=== PATIENT | male | born 1955 | race Caucasian/White ===

== ENCOUNTER 2017-08-14 21:10 | Emergency (ER) | payer BC ==
[2017-08-14 21:14] VITALS: BMI 26.6
--- NOTE | 2017-08-14 21:52 | DR.GENAD ---
HPI - HPI Comment HPI Comment: PATIENT HAVE LEFT KNEE AND LEFT ELBOW PAIN WELL BRUISE LEFT FACE. - Complaint/Symptoms Chief Complaint Doctors Comments: fell. facial abrasions and laceration corner left eye 2cm. Chief Complaint:: PT STATES THAT HE TRIPPED OVER HIS DOG GATE AND HIT HIS HEAD ON A TABLE. DENIES LOC. A&O X4. PT HAS LAC ON NOSE AND UNDER LT EYE. BLEEDING CONTROLLED. VANDANA RN Self Treatment fo Chief Complaint: PT TOOK BP MEDS THIS AM - Nurses notes reviewed Nurses Notes Review: Yes - Source History Provided: Patient - Mode of Arrival Mode of Arrival: Ambulatory - Timing Onset of Chief Complaint: 08/14/17 Came on: Suddenly - Duration Duration: Constant Duration: Hours - Severity Severity: Moderate PMH - PMH Past Medical History: Yes Past Medical History: Hypertension Past Surgical History: Yes Surgical History: Ortho Surgery - Family History History of Family Medical Conditions: Yes Family Medical History: Cancer, Hypertension - infectious screening Have you traveled outside the country in the last 6 months?: No ROS - Review of Systems Constitutional: No Symptoms Reported Eyes: No Symptoms Reported (PERIORBITAL SWELLING AND BRUISING.), Other ENTM: No Symptoms Reported Respiratoy: No Symptoms Reported Cardiovascular: No Symptoms Reported Gastrointestinal/Abdominal: No Symptoms Reported Genitourinary: No Symptoms Reported Neurological: No Symptoms Reported Musculoskeletal: Muscle Pain, Left, Elbow, Knee, Other (LEFT THIGH) Integumentary: Change in Color, Bruises (LEFT FACE.), Other (abrasion face and lac lateral corner left eye.) Hematologic/Lymphatic: No Symptoms Reported Endocrine: No Symptoms Reported All Other Systems: Reviewed and Negative PE - Vital Signs Vitals: Temperature 97.5 F Pulse Rate [] 83 Pulse Rate 70 Respiratory Rate 18 Blood Pressure [] 143/84 Blood Pressure 189/119 O2 Sat by Pulse Oximetry 99 - General Limitations: No Limitations General Appearance: Alert - Head Head Exam: Normal Inspection - Eyes Eye exam: Normal Appearance - ENT ENT Exam: Normal External Ear Exam External Ear Exam: Normal External Inspection TM/Canal Exam: Bilateral Normal Nose Exam: Laceration (ABRASION/SUPERFICIAL 1/2 CM MID NOSE.) Mouth Exam: Normal Inspection Throat Exam: Normal Inspection - Neck Neck Exam: Trachea Midline - Chest Chest Inspection: Symmetric Chest Wall Rise - Respiratory Respiratory Exam: Normal Lung Sounds Bilat Respiratory Exam: Bilateral Clear to Auscultation - Cardiovascular Cardiovascular Exam: Regular Rate, Normal Rhythm, Normal Heart Sounds - Abdominal Exam Abdominal Exam: Normal Bowel Sounds, Soft. negative: Tenderness - Extremities Extremities Exam: Tenderness (LEFT KNEE SWOLLEN AND TENDER. KARON. LEFT THIGH BRUISED. ) - Back Back Exam: Normal Inspection - Neurologic Neurological Exam: Alert, Oriented X3 - Psychiatric Psychiatric Exam: Normal Affect, Normal Mood - Skin Skin Exam: Erythema MDM - Additional Information Additional Information Obtained From: Family - Differential Diagnosis Differential Diagnosis: LAC LEFT FACE, ABRASION NOSE, FACIAL CONTUSION, HEMATOMA LEFT FACE. Course - Treatment Treatment: SEE ORDERS. LAC CLOSE. TD IM IN ED. - Reevaluation 1st: Improved - Education/Counseling Education/Counseling: Patient, Education Educated On: Treatment, Diagnosis, Needs for Follow Up ROR - XRAY XRAY Interpreted by: Radiologist XRAY Findings: REPORT DISCUSS WITH PATIENT. Procedures - Laceration/Wound Repair Left Face Wound Length (cm): 2 Wound's Depth, Shape: Linear Wound Explored: clean Betadine Prep?: Yes Anesthesia: 1% Lidocaine Volume Anesthetic (ccs): 3 Wound Debrided: moderate Wound Repaired With: sutures Suture Size/Type: 5:0, [place] Number of Sutures: 4 (CONTINOUS SUTURE.) Layer Closure?: No Sterile Dressing Applied?: Yes Splint Applied?: No Sling Applied?: No - Diagnosis Discharge Problem: Hematoma Facial contusion Qualifiers: Encounter type: initial encounter Qualified Code(s): S00.83XA - Contusion of other part of head, initial encounter Laceration of face Qualifiers: Encounter type: initial encounter Qualified Code(s): S01.81XA - Laceration without foreign body of other part of head, initial encounter Sprain of left knee Qualifiers: Encounter type: initial encounter Involved ligament of knee: unspecified ligament Qualified Code(s): S83.92XA - Sprain of unspecified site of left knee, initial encounter Contusion of left thigh Qualifiers: Encounter type: initial encounter Qualified Code(s): S70.12XA - Contusion of left thigh, initial encounter - Discharge Plan Disposition: 01 HOME, SELF-CARE Condition: Stable - Follow ups/Referrals Follow ups/Referrals: FERNANDA PARKER [Primary Care Provider] - 3 days - Instructions Instructions: Musculoskeletal Pain, Laceration Care, Adult, [id number], Knee Pain, [id number] Additional Instructions: RETURN TO ED IF WORSE. SUTURE OUT IN 10 DAYS.
[2017-08-14] MEDS ORDERED: ADACEL TDaP IM ONE ×2 (22:00→22:02)
[2017-08-14] MEDS ORDERED: XYLOCAINE 1 % (PLAIN) ONE (22:41)
--- NOTE | 2017-08-14 22:51 | CT ---
CT head without contrast Indication: Fall with facial lacerations Technique: Axial images from the skullbase to the vertex without contrast. Coronal and sagittal ref ormats provided. Findings: There is no acute intracranial hemorrhage, mass or mass effect. No extra-axial fluid jo-ann ection or abnormal area of hypoattenuation suggest infarction seen. Ventricles and sulci are normal. There is dilated left vertebral artery. Review of bone windows shows no osseous lesion. Paranasal sinuses and mastoid air cells are clear. Impression: 1. No acute intracranial hemorrhage. 2. Ectatic vertebral artery on the left and ectatic basilar artery. Reported By:
--- NOTE | 2017-08-14 22:53 | CT ---
CT maxillofacial without contrast Indication: Pain after fall with facial lacerations. Technique: Helical images through the face without contrast. Coronal and sagittal reformats provide d. Findings: Limited images through the upper spine shows disc degenerative change at C4-C5. Preverteb ral soft tissues are normal. The mandible and temporomandibular joints are intact. Zygomatic arches are normal. Orbital seaman are intact. No displaced nasal bone fracture seen. Mucosal retention cy st seen in the right maxillary sinus. Paranasal sinuses and mastoid air cells are otherwise clear. No large facial hematoma seen. Swelling lateral to the left orbit noted. The globe cells a Conal fa t appear normal. Impression: 1. No acute displaced facial fracture. 2. Degenerative changes and soft tissue swelling around the left orbit as above. Reported By:
[2017-08-14] MEDS ORDERED: NEOSPORIN OINT ONE (23:05)
[2017-08-14 23:08] VITALS: BP 143/84
--- NOTE | 2017-08-15 03:02 | RAD ---
Left knee three views Indication: Left knee pain and bruising. Findings: There is no large effusion. Mild patellofemoral and medial femorotibial joint space narrowi ng noted. There is no cortical lucency or malalignment. Impression: Degenerative change without acute fracture. Reported By:
== END 2017-08-14 23:20 | disposition home or self-care (01) ==
LOC: ER 21:22
PROC: 0WQ2XZZ Repair Face, External Approach (ICD-10-PCS; principal; 2017-08-14)
DX: S00.83XA Contusion of other part of head, initial encounter (principal); S01.81XA Laceration without foreign body of other part of head, initial encounter; S83.92XA Sprain of unspecified site of left knee, initial encounter; S70.12XA Contusion of left thigh, initial encounter; W01.198A Fall on same level from slipping, tripping and stumbling with subsequent striking against other object, initial encounter; Y92.9 Unspecified place or not applicable
CPT/HCPCS: 12011; 70450; 70486; 73560; 90471; 99283; 99284; J2001

== ENCOUNTER → 2017-10-31 | Outpatient (CLI) | payer BC ==
--- NOTE | 2017-10-31 09:26 | US ---
HISTORY: Hypertension Study: Renal ultrasound: Multiplanar ultrasonographic examination of the kidneys was performed. Comparison: None Findings: Overall examination of the kidneys reveal them to be of normal echogenicity and echotexture. There i s mild cortical lobularity, most likely on the basis of scarring from prior inflammatory reaction or ischemic change. No evidence of mass or hydronephrosis is noted. Right kidney: 9.0 cm in length by 5 x 4 cm. Resistive index is normal at 0.63. Left kidney: 10.0 cm in length by 6 x 4.1 cm. The resistive index is normal at 0.60. IMPRESSION: 1. Essentially negative renal ultrasound. 2. Both resistive indices are normal. Reported By:
== END ==
LOC: RAD 08:39
PROVIDERS: ATTEND Internal Medicine
DX: N28.89 Other specified disorders of kidney and ureter (principal); I10 Essential (primary) hypertension
CPT/HCPCS: 76770